=== PATIENT | male | born 1950 | race Caucasian/White ===

== ENCOUNTER 2017-03-29 08:13 | Emergency (ER) | payer OTHER ==
[~2017-03-29] VITALS: Ht 182.9 cm; Wt 100.0 kg
[~2017-03-29 08:13] MED LIST: ATOR20TA42 PO; PERC10TA27 PO; RANI150 PO; TRAZ100 PO; VITATAB25 PO
[2017-03-29 08:16] VITALS: BP 174/74; PULSE 60; RESP 13; TEMP 97.5; O2SAT 98
[2017-03-29] MEDS ORDERED: TRAZ100T6 PO (08:29)
[2017-03-29] MEDS ORDERED: ASPI81CH CHEW (08:29)
[2017-03-29] MEDS ORDERED: SERT-132 PO (08:29)
[2017-03-29] MEDS ORDERED: MULT-65 PO (08:29)
[2017-03-29] MEDS ORDERED: OXYC1TAB36 PO (08:29)
[2017-03-29] MEDS ORDERED: LISI10TA3 PO (08:29)
[2017-03-29] MEDS ORDERED: ATOR10TA15 PO (08:29)
[2017-03-29] MEDS ORDERED: VITA100018 PO (08:29)
[2017-03-29 08:33] VITALS: BP 137/69; PULSE 56; RESP 19; O2SAT 98
--- NOTE | 2017-03-29 08:49 | PD ---
HPI Chief Complaint: Headache Time Seen by Provider: 08:30 Travel History International Travel<30 days: No Contact w/Intl Traveler<30days: No Traveled to known affect area: No History of Present Illness HPI This is a 66-year-old male with a history of meningioma that was removed, chronic headaches, who presents today with complaints of headache exacerbation. The patient states this is similar to his previous headaches. This is not the worst headache of his life. He states he came on gradually like PREVIOUS headaches. He states usually takes to take medicines at home however they did not work and when they don't work, he usually comes to the ER to get Toradol and an antiemetic. He denies any numbness or tingling of his extremities. He denies any neck stiffness. He does report mild photophobia. He reports the pain as a 9 out of 10 on the pain scale. There are no other complaints time of my examination. PFSH Past Medical History Blood Disorders: No Depression: Yes Cancer: Yes (MENINGIOMA) High Cholesterol: Yes Diabetes: No Diminished Hearing: No GERD: Yes Headaches: Yes Hiatal Hernia: Yes Hypertension: Yes Medical other: No Neurologic: Yes (MENINGIOMA WITH CRANIOTOMY IN ) Immunizations Current: Yes Migraines: Yes Past Surgical History Cholecystectomy: Yes Neurologic Surgery: Yes (brain tumor removal 2003) Other Surgery: Yes (left arm surgery) Social History Alcohol Use: No Tobacco Use: Yes (1/2ppd) Substance Use: No Allergies-Medications (Allergen,Severity, Reaction): Coded Allergies: No Known Allergies (Verified , 03/29/17) Reported Meds & Prescriptions Reported Meds & Active Scripts Active Reported Sertraline (Sertraline HCl) 50 Mg Tab 50 Mg PO DAILY Multi-Vitamin Daily (Multiple Vitamin) 1 Tab Tab 1 Tab PO DAILY Vitamin D3 (Cholecalciferol) 1,000 Unit Tab 1,000 Units PO DAILY Trazodone (Trazodone HCl) 100 Mg Tablet 100 Mg PO HS Lisinopril 10 Mg Tab 10 Mg PO DAILY Aspirin 81 Mg Chew 81 Mg CHEW DAILY Atorvastatin (Atorvastatin Calcium) 10 Mg Tab 10 Mg PO HS Oxycodone-Acetaminophen 10-325 mg Tab 1 Tab PO Q6H PRN Review of Systems Except as stated in HPI: all other systems reviewed are Neg General / Constitutional: No: Fever, Chills HENT: Positive: Headaches, No: Lightheadedness, Neck Stiffness, Neck Pain Cardiovascular: No: Chest Pain or Discomfort, Palpitations Respiratory: No: Cough, Shortness of Breath Gastrointestinal: No: Nausea, Vomiting Musculoskeletal: No: Weakness, Pain Neurologic: Positive: Headache, No: Weakness, Dizziness, Focal Abnormalities, Change in Mentation, Sensory Disturbance Physical Exam Narrative GENERAL: Well-developed well-nourished male in no acute respiratory distress. SKIN: Focused skin assessment warm/dry. HEAD: Atraumatic. Normocephalic. EYES: No scleral icterus. No injection or drainage. ENT: No nasal bleeding or discharge. Mucous membranes pink and moist. NECK: Trachea midline. No JVD. Supple CARDIOVASCULAR: Regular rate and rhythm. No murmur appreciated. RESPIRATORY: No accessory muscle use. Clear to auscultation. Breath sounds equal bilaterally. GASTROINTESTINAL: Abdomen soft, non-tender, nondistended. Hepatic and splenic margins not palpable. MUSCULOSKELETAL: No obvious deformities. No clubbing. No cyanosis. No edema. NEUROLOGICAL: Awake and alert. No obvious cranial nerve deficits. Motor grossly within normal limits. Normal speech. PSYCHIATRIC: Appropriate mood and affect; insight and judgment normal. Data Data Last Documented VS Vital Signs Date Time Temp Pulse Resp B/P (MAP) Pulse Ox O2 Delivery O2 Flow Rate FiO2 03/29/17 08:33 56 19 137/69 (91) 98 Room Air 03/29/17 08:16 97.5 Orders Orders Iv Access Insert/Monitor (03/29/17 08:50) Ecg Monitoring (03/29/17 08:50) Sodium Chlorid 0.9% 500 Ml Inj (Ns 500 M (03/29/17 09:00) Prochlorperazine Inj (Compazine Inj) (03/29/17 09:00) Ketorolac Inj (Toradol Inj) (03/29/17 09:00) MDM Medical Decision Making Medical Screen Exam Complete: Yes Emergency Medical Condition: Yes Differential Diagnosis Migraine exacerbation versus intracranial hemorrhage versus dehydration Narrative Course This is a 66-year-old male with history chronic headaches, presents today with exacerbation of his chronic headaches. Patient states that when he takes his home medications and it does not get better, he sometimes has to come here. He requested Toradol and antiemetic. He was given 30 mg of IV Toradol followed by 10 mg of Compazine and 500 cc of normal saline. He states his pain is nearly gone and is wishing to go home. I do not feel the patient has an intracranial hemorrhage. This is like his previous headaches and no change in the character and quality. He'll be discharged told to follow up with his neurologist. He is instructed return of he develops any new symptoms or any other reason that concerned him. Diagnosis Primary Impression: Cephalgia Additional Instructions: Follow up with neurologist. Return if feeling worse or any other reason the concerns her. Disposition: 01 DISCHARGE HOME Condition: Stable Andreas Zaldivar MD Mar 29, 2017 08:49
[2017-03-29] MEDS ORDERED: PROCHLORPERAZINE INJ 10 MG/2 ML VIAL IV PUSH ONE (09:00)
[2017-03-29] MEDS ORDERED: KETOROLAC TROMETHAMINE 30 MG/ML (IVP) VIAL IV PUSH ONE (09:00)
[2017-03-29] MEDS ORDERED: SODIUM CHLORID 0.9% 500 ML INJ 500 ML IV ONE (09:00)
[2017-03-30] MEDS ORDERED: OXYC1TAB36 PO (22:53)
[2017-03-30] MEDS ORDERED: CLIN1CAP5 PO (22:53)
== END 2017-03-29 11:23 | disposition home or self-care (01) ==
LOC: NEPC 08:13
DX: R51 Headache (principal); F32.9 Major depressive disorder, single episode, unspecified; E78.5 Hyperlipidemia, unspecified; K21.9 Gastro-esophageal reflux disease without esophagitis; I10 Essential (primary) hypertension; F17.200 Nicotine dependence, unspecified, uncomplicated; Z79.82 Long term (current) use of aspirin
CPT/HCPCS: 96361; 96374; 96375; 99284; J0780; J1885; J7040

== ENCOUNTER 2017-03-30 19:06 | Emergency (ER) | payer OTHER ==
[~2017-03-30] VITALS: Ht 182.9 cm; Wt 95.5 kg
[~2017-03-30 19:06] MED LIST changes: +ASPI81CH CHEW; +ATOR10TA15 PO; -ATOR20TA42 PO; +LISI10TA3 PO; +MULT-65 PO; +OXYC1TAB36 PO; -PERC10TA27 PO; -RANI150 PO; +SERT-132 PO; -TRAZ100 PO; +TRAZ100T6 PO; +VITA100018 PO; -VITATAB25 PO
[2017-03-30 19:09] VITALS: BP 170/90; PULSE 79; RESP 16; TEMP 97.9; O2SAT 96
--- NOTE | 2017-03-30 21:58 | PD ---
HPI Chief Complaint: Injury Time Seen by Provider: 21:49 Travel History International Travel<30 days: No Contact w/Intl Traveler<30days: No Traveled to known affect area: No History of Present Illness HPI Patient is a 66-year-old male presents emergency department for evaluation of left hand injury. Patient states he was sandwiched between a trailer hitch and the concrete prior to arrival. His primary injury is on his left ring finger at the distal phalanx. States his pain is fairly mild, constant, no numbness tingling or other injuries reported. Context as above. PFSH Past Medical History Blood Disorders: No Depression: Yes Cancer: Yes (MENINGIOMA) High Cholesterol: Yes Diabetes: No Diminished Hearing: No GERD: Yes Headaches: Yes Hiatal Hernia: Yes Hypertension: Yes Neurologic: Yes (MENINGIOMA WITH CRANIOTOMY IN ) Immunizations Current: Yes Migraines: Yes Tetanus Vaccination: < 5 Years Past Surgical History Cholecystectomy: Yes Neurologic Surgery: Yes (brain tumor removal 2003) Other Surgery: Yes (left arm surgery) Social History Alcohol Use: No Tobacco Use: Yes (1/2ppd) Substance Use: No Allergies-Medications (Allergen,Severity, Reaction): Coded Allergies: No Known Allergies (Verified , 03/30/17) Reported Meds & Prescriptions Reported Meds & Active Scripts Active Oxycodone-Acetaminophen 10-325 mg Tab 1 Tab PO Q6H PRN Clindamycin (Clindamycin HCl) 150 Mg Cap 300 Mg PO Q6H 10 Days Reported Sertraline (Sertraline HCl) 50 Mg Tab 50 Mg PO DAILY Multi-Vitamin Daily (Multiple Vitamin) 1 Tab Tab 1 Tab PO DAILY Vitamin D3 (Cholecalciferol) 1,000 Unit Tab 1,000 Units PO DAILY Trazodone (Trazodone HCl) 100 Mg Tablet 100 Mg PO HS Lisinopril 10 Mg Tab 10 Mg PO DAILY Aspirin 81 Mg Chew 81 Mg CHEW DAILY Atorvastatin (Atorvastatin Calcium) 10 Mg Tab 10 Mg PO HS Oxycodone-Acetaminophen 10-325 mg Tab 1 Tab PO Q6H PRN Review of Systems Except as stated in HPI: all other systems reviewed are Neg Physical Exam Narrative GENERAL: Well-nourished, well-developed patient. SKIN: Focused skin assessment warm/dry. There is laceration about the radial aspect of the left ring finger, appears to extend into the cuticle. HEAD: Normocephalic. EYES: No scleral icterus. No injection or drainage. NECK: Supple, trachea midline. No JVD or lymphadenopathy. CARDIOVASCULAR: Regular rate and rhythm without murmurs, gallops, or rubs. RESPIRATORY: Breath sounds equal bilaterally. No accessory muscle use. GASTROINTESTINAL: Abdomen soft, non-tender, nondistended. MUSCULOSKELETAL: No cyanosis, or edema. Pulses motor and sensory intact distally in all 4 extremities, cap refill is brisk at the distal phalanx in all 5 digits of the left hand. Compartments are soft. BACK: Nontender without obvious deformity. No CVA tenderness. Data Data Last Documented VS Vital Signs Date Time Temp Pulse Resp B/P (MAP) Pulse Ox O2 Delivery O2 Flow Rate FiO2 03/30/17 23:20 98.9 74 16 171/84 (113) 97 03/30/17 19:09 Room Air Orders Orders Lidocaine 1% Inj (Xylocaine 1% Inj) (03/30/17 22:00) Hand, Complete ([id number]) (03/30/17 ) [id number] (Booster) Inj (Boostrix (03/30/17 22:00) Lidocaine Pf 1% Inj (Xylocaine-Mpf 1% In (03/30/17 22:01) Ed Discharge Order (03/30/17 23:09) Clindamycin (Cleocin) (03/30/17 23:15) MDM Medical Decision Making Medical Screen Exam Complete: Yes Emergency Medical Condition: Yes Differential Diagnosis Open fracture, nail avulsion, laceration Narrative Course patient roomed emergency department, given a first dose antibiotics in the emergency department, his tetanus was updated. After digital block the patient was repaired by PA. Will be placed on antibiotics, discussed signs symptoms that should prompt emergent return to the ER, recommended follow-up with a primary care physician as well as a hand surgeon referral was made. He is stable for discharge. Diagnosis Primary Impression: Open fracture of finger Qualified Codes: S62.635B - Displaced fracture of distal phalanx of left ring finger, initial encounter for open fracture Referrals: Abbey Jones MD Med/Other Pt SpecificInfo: Prescription(s) given Scripts Oxycodone-Acetaminophen (Oxycodone-Acetaminophen) 10-325 mg Tab 1 TAB PO Q6H Y for PAIN, #15 TAB 0 Refills Prov: Zane Barahona MD 03/30/17 Clindamycin (Clindamycin) 150 Mg Cap 300 MG PO Q6H for Infection for 10 Days, #80 CAP 0 Refills Prov: Zane Barahona MD 03/30/17 Zane Barahona MD Mar 30, 2017 21:58
[2017-03-30] MEDS ORDERED: LIDOCAINE HCL 1% 20 ML VIAL INFIL ONE (22:00)
[2017-03-30] MEDS ORDERED: DIPHTH/TETANUS/ACEL PERTUSSIS (BOOSTER) 0.5 ML VIAL/PFS IM ONE (22:00)
[2017-03-30] MEDS ORDERED: LIDOCAINE HCL 1% PF 30 ML VIAL ONE (22:01)
--- NOTE | 2017-03-30 22:19 | RADRPT ---
EXAM DATE/TIME: 03/30/2017 21:53 [facility] COMPARISON: No previous studies available for comparison. INDICATIONS : 4th digit at distal phalanx brusied from being stuck between trailer and cement block. MEDICAL HISTORY : None. SURGICAL HISTORY : None. ENCOUNTER: Initial ACUITY: 1 day PAIN SCORE: 10/10 LOCATION: Left hand FINDINGS: Three view examination of the left hand demonstrates a fracture involving the tuft of the distal phal anx of the fourth digit. There is significant soft tissue swelling. Pusher showed hand are otherwise intact. The interphalangeal and metacarpophalangeal joints are intact. Bony mineralization is normal . CONCLUSION: Tuft fracture involving the distal phalanx of the fourth digit. Emmett Harley MD on March 30, 2017 at 22:17 Board Certified Radiologist. This report was verified electronically.
[2017-03-30] MEDS ORDERED: CLIN1CAP5 PO (22:53)
[2017-03-30] MEDS ORDERED: OXYC1TAB36 PO (22:53)
--- NOTE | 2017-03-30 23:14 | PD ---
Physical Exam Date Seen by Provider: Mar 30, 2017 Time Seen by Provider: 23:10 Narrative Left Ring finger: Patient has an avulsion of the nail and nailbed along with a nailbed laceration. Patient has intact gross sensation with good Refill. This reveals an open fracture. Data Data Last Documented VS Vital Signs Date Time Temp Pulse Resp B/P (MAP) Pulse Ox O2 Delivery O2 Flow Rate FiO2 03/30/17 21:38 14 98 03/30/17 19:09 97.9 79 170/90 (116) Room Air Orders Orders Lidocaine 1% Inj (Xylocaine 1% Inj) (03/30/17 22:00) Hand, Complete ([id number]) (03/30/17 ) [id number] (Booster) Inj (Boostrix (03/30/17 22:00) Lidocaine Pf 1% Inj (Xylocaine-Mpf 1% In (03/30/17 22:01) Ed Discharge Order (03/30/17 23:09) Clindamycin (Cleocin) (03/30/17 23:15) MDM Medical Record Reviewed: Yes Supervised Visit with MADISYN: Yes Interpretation(s) Left Ring finger: Positive fracture distal phalanx Differential Diagnosis MDM: High Differential diagnoses: Fracture, sprain, strain, dislocation, contusion, neurovascular injury Narrative Course Patient's laceration is repaired and the patient is placed in a bulky dressing and a finger splint. Patient is given Ancef. Procedures Procedure Narrative Left ring finger nail bed reconstruction: The patient's head is prepped and draped in usual fashion using Betadine. Patient's given a digital block with 1 % lidocaine. After adequate anesthesia the nail is elevated off the nail bed. This reveals a laceration with open fracture of the nailbed. There is a laceration that extends to the radial aspect of the distal phalanx of the nailbed. The wound is copiously irrigated with jet irrigation with normal saline. The nailbed is repaired using 5-0 Vicryl sutures. The nail was reinserted in the eponychial space and sutured down. The lateral finger laceration is repaired using 5-0 proline. A small amount of Neosporin, Xeroform gauze, Telfa and bulky dressings applied along with a birdcage finger splint. Patient tolerates procedure well without complication. Diagnosis Primary Impression: Open fracture of finger Qualified Codes: S62.635B - Displaced fracture of distal phalanx of left ring finger, initial encounter for open fracture Referrals: Abbey Jones MD Patient Instructions: General Instructions Departure Forms: Tests/Procedures Med/Other Pt SpecificInfo: Prescription(s) given Scripts Oxycodone-Acetaminophen (Oxycodone-Acetaminophen) 10-325 mg Tab 1 TAB PO Q6H Y for PAIN, #15 TAB 0 Refills Prov: Zane Barahona MD 03/30/17 Clindamycin (Clindamycin) 150 Mg Cap 300 MG PO Q6H for Infection for 10 Days, #80 CAP 0 Refills Prov: Zane Barahona MD 03/30/17 Disposition: 01 DISCHARGE HOME Condition: Stable Guzman He Mar 30, 2017 23:14
[2017-03-30] MEDS ORDERED: CLINDAMYCIN 150 MG CAP PO ONE (23:15)
[2017-03-30 23:20] VITALS: BP 171/84; TEMP 98.9
== END 2017-03-30 23:21 | disposition home or self-care (01) ==
LOC: NEPD 19:06
DX: S62.635B Displaced fracture of distal phalanx of left ring finger, initial encounter for open fracture (principal); W23.0XXA Caught, crushed, jammed, or pinched between moving objects, initial encounter; Z23 Encounter for immunization
CPT/HCPCS: 11760; 12001; 73130; 90471; 90715